=== PATIENT | male | born 1975 | race Caucasian/White ===

== ENCOUNTER 2022-12-14 09:26 | Emergency (ER) | payer OTHER, SELFPAY ==
--- NOTE | 2022-12-14 09:41 | ED.URI ---
HPI - URI/Sore Throat General Chief Complaint: Upper Respiratory Infection Stated Complaint: sorethroat Time Seen by Provider: 12/14/22 09:58 Source: patient and RN notes reviewed Mode of arrival: ambulatory Limitations: no limitations History of Present Illness HPI Narrative: 47-year-old male presents with concern for sore throat that started yesterday. Reports he was exposed to strep throat co-worker. He denies nasal congestion, rhinorrhea, cough, fever, body aches, chills, sweats. He reports headache. He has not taken any medication for his symptoms. MD elicited complaint: sore throat Related Data Home Medications Medication Instructions Recorded Confirmed No Home Medications 12/14/22 12/14/22 Allergies Allergy/AdvReac Type Severity Reaction Status Date / Time No Known Allergies Allergy Verified 12/14/22 10:12 Review of Systems Review of Systems: CONSTITUTIONAL: Denies malaise, chills, sweats, or fever. EYES: Denies visual changes, redness, or discharge. ENT: Denies rhinorrhea, congestion, sinus pain, otalgia. Reports sore throat. CARDIOVASCULAR: Denies chest pain, palpitations, or edema. RESPIRATORY: Denies cough. Denies dyspnea. GASTROINTESTINAL: Denies abdominal pain, nausea, vomiting, diarrhea SKIN: Denies rash or itching. MUSCULOSKELETAL: Denies myalgia. NEUROLOGIC: Reports headache. All systems reviewed & are unremarkable except as noted in HPI and below PMFSH Comments At time of signature, agree with nursing past medical, surgical, social and family history. There is no relevant family history pertinent to the presenting complaint Exam Narrative: GENERAL: Well-appearing, well-nourished, and in no acute distress. HEAD: Normocephalic EYES: PERRLA, conjunctivae clear ENT: Nares clear. Mucous membranes moist. TM pearly chow with sharp light reflex bilaterally; no tragal tenderness. Oropharynx not erythematous without lesions. Tonsils not enlarged and without exudate, no drooling, no hoarseness, no trismus, uvula midline. NECK: Supple. No lymphadenopathy CHEST: Clear to auscultation, breath sounds equal. No wheezing, rhonchi, rales, or stridor. No respiratory distress, speaks in full sentences. HEART: Regular rate and rhythm. No murmur heard. SKIN: Warm, dry, no rash. NEURO: Alert and oriented x3. PSYCH: Normal mood and affect Course Course Emergency Course: Patient is aware of diagnosis, understands and agrees to treatment plan. Anticipatory guidance given. Patient agrees to follow-up as directed and is aware of reasons to seek care at the emergency department. Portions of this record may have been created with voice recognition software Level of Care: Express Care Visit Vital Signs Vital signs: Reviewed. MDM - URI/Sore Throat MDM Narrative Medical decision making narrative: Differential diagnosis considered: Cazares virus, strep pharyngitis, allergic rhinitis, upper respiratory tract infection, sinusitis, rhinosinusitis, nasopharyngitis. viral pharyngitis, otitis media, otitis externa, pneumonia, bronchitis, viral cough syndrome, viral syndrome, and influenza. Exam findings show no acute concerns or changes; patient is non-toxic appearing and is in no distress. Patient is appropriate for outpatient treatment and follow-up. Lab Data Attestation: I reviewed the patient's lab results. Critical Care Time Critical Care Time Critical Care Time: No Discharge Plan Discharge Clinical Impression: Pharyngitis Patient Disposition: Home, Self-Care Condition: Stable Instructions: Pharyngitis (ED) Additional Instructions: Your rapid strep swab was negative today at [facility]. A throat culture will be sent to the laboratory for further testing. If the test is positive, you will receive a phone call within 48 hours and an appropriate antibiotic will be initiated at that time. Your symptoms are likely due to a viral illness, which is not treated with antibiotics. Viral sy
[2022-12-14 09:53] VITALS: BP 134/74; PULSE 65; RESP 18; TEMP 36.7; O2SAT 98
== END 2022-12-14 10:24 | disposition home or self-care (01) ==
PROVIDERS: Emergency Provider Nurse Practitioner
DX: J02.9 Acute pharyngitis, unspecified (principal)
CPT/HCPCS: 87880; 99213; G0463

== ENCOUNTER 2024-05-14 09:29 | Emergency (ER) | payer OTHER, SELFPAY ==
--- NOTE | 2024-05-14 09:32 | ED_ITS ---
HPI - URI/Sore Throat General Chief Complaint: Upper Respiratory Infection Stated Complaint: Flu Like / sinus congestion Time Seen by Provider: 05/14/24 09:32 Source: patient Mode of arrival: ambulatory Limitations: no limitations History of Present Illness HPI Narrative: Phil is a 48-year-old male patient presenting to the clinic today with complaints of flu-like symptoms/sinus congestion, left ear pain. Reports his symptoms started approximately 4 5 days ago. He has a 101 degree fever in the clinic today. States that he developed a lot of sinus congestion and ear pain yesterday however he has had runny nose, cough, congestion, and fever for the past 4-5 days. Denies any chest pain or shortness of breath. Related Data Home Medications ?Medication ?Instructions ?Recorded ?Confirmed ?Last Taken ?Type No Home Medications 05/14/24 05/14/24 Unknown History Allergies Allergy/AdvReac Type Severity Reaction Status Date / Time No Known Allergies Allergy Verified 05/14/24 09:46 Review of Systems Review of Systems: Pertinent positives per HPI. Patient denies any rash, headache, visual changes, dizziness, shortness of breath, chest pain, palpitations, nausea, vomiting, diarrhea, constipation, abdominal pain, or any urinary issues. PMFSH Comments At the time of my signature, I reviewed and agree with the nursing past medical, surgical, social, and family history. There is no relevant family history pertinent to the patient complaint. Exam Narrative: General: Well-developed, well nourished, in no apparent distress Head: Normocephalic, atraumatic Eyes: Pupils equally round and reactive to light bilaterally, EOM intact, sclera and conjunctive clear, no discharge, lids normal Ears: TMs intact and congested, ear canals clear, no drainage, grossly hearing normal. Nose: Nares patent, clear nasal discharge, no inflammation, no sinus tenderness. Mouth: Oral pharynx without lesions or masses, good dentition, MMM. Neck: Supple, trachea midline, no enlargement of anterior or posterior cervical nodes, no thyroid masses or goiter palpable. Cardio: Regular rate and rhythm, s1 and s2 normal, no murmur appreciated. Resp: Clear to auscultation bilaterally, no rhonchi, rales, wheezing or rubs Course Course Emergency Course: Portions of this record may have been created with voice recognition software. Level of Care: Express Care Visit Vital Signs Vital signs: Vital Signs Temperature 38.6 C H 05/14/24 09:41 Pulse Rate 92 05/14/24 09:41 Respiratory Rate 18 05/14/24 09:41 Blood Pressure 152/88 H 05/14/24 09:41 Pulse Oximetry 98 05/14/24 09:41 Oxygen Delivery Room Air 05/14/24 09:41 Temperature 38.6 C H 05/14/24 09:41 Pulse Rate 92 05/14/24 09:41 Respiratory Rate 18 05/14/24 09:41 Blood Pressure 152/88 H 05/14/24 09:41 Pulse Oximetry 98 05/14/24 09:41 Oxygen Delivery Room Air 05/14/24 09:41 Vital signs reviewed MDM - URI/Sore Throat MDM Narrative Medical decision making narrative: At the time of visit patient is resting comfortably on the exam table. Patient appears to be nontoxic. Labs: Influenza and COVID testing was performed. Influenza testing was positive for influenza B. COVID testing was negative. Plan: Patient has influenza B. Supportive measures were discussed with the patient and they voiced understanding discharge instructions and agrees to treatment plan. Return precautions reviewed Differential Diagnosis Differential diagnosis: Likely upper respiratory infection, otitis media, sinusitis, viral infection, bronchitis, influenza, pharyngitis and other (COVID) Lab Data Labs: Lab Results 05/14/24 Range/Units 09:55 POC Influenza A Ag Negative (Negative) POC Influenza B Ag Positive (Negative) POC SARS CoV-2 Ag Negative (Negative) Discharge Plan Discharge Clinical Impression: Influenza B Patient Disposition: Home, Self-Care Condition: Stable Instructions: Antibiotic Form, Influenza (ED) Additional Instructions: Influenza B testing was positive in the clinic today. COVID testing was negati ve. May take DayQuil/NyQuil for cold/flu symptoms May take Mucinex as needed for cough and congestion Increase fluids and stay well hydrated Tylenol/motrin for pain/fever Flonase and OTC antihistamines as directed Vicks vapor rub to open sinuses Sinus rinses for congestion Cepacol spray, cough drops, throat lozenges, warm tea with honey/lemon, gargle salt water to soothe throat BRAT diet for diarrhea Clear liquids x 24 hours then advance as tolerated for nausea/vomiting Go to the ED if you develop a worsening in your condition- high fever not controlled by Tylenol or Motrin, dehydration, weakness, lethargy, shortness of breath, or chest pain. Follow up with your PCP in 3-5 days if symptoms persist. Patient Language: Ukrainian Prescriptions: No Action No Home Medications Follow-up/Referrals: PHYSICIAN,SPECIAL INVESTIGATOR [Primary Care Provider] - Stand Alone Forms: Work/School Release IP Time of Disposition: 09:47 Quality NIHSS Nursing Documentation ED NIHSS nursing documentation: reviewed/agree
[2024-05-14 09:41] VITALS: BP 152/88; PULSE 92; RESP 18; TEMP 38.6; O2SAT 98
[2024-05-14 09:57] LABS: EDCOVIDSCREEN Negative (Negative); EDINFLUASCREEN Negative (Negative); EDINFLUBSCREEN Positive (Negative)
--- OUTSIDE RECORDS SUMMARY | 2024-05-14 10:20 | XMS_ITS | Clinical Summary ---
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 Gender Identity Not on file Sexual Orientation Not on file Plan of Treatment Health Maintenance Due Date Last Done Comments Hepatitis C Virus (HCV) Screening 1974 TdaP Immunization 1974 Hepatitis B Immunization (1 of 3 - 19+ 3-dose series) 1993 Colonoscopy 07/09/2019 Colorectal Cancer Screening 07/09/2019 Influenza Immunization (#1) 2023 SARS-COV-2 Immunization ( season) 2023 Respiratory Syncytial Virus (RSV) Immunization (Adult) (1 - 1-dose 75+ series) 2049 Meningococcal Immunization (ACWY) Aged Out No longer eligible based on patient's age to complete this topic Pneumococcal Immunization Combined Aged Out No longer eligible based on patient's age to complete this topic Rotavirus Immunization Aged Out No lo nger eligible based on patient's age to complete this topic
--- OUTSIDE RECORDS SUMMARY | 2024-05-14 10:20 | XMS_ITS | Clinical Summary ---
Author Organization [facility] Address [address] [place] [address] Care Team Providers Care Neurourologist Name Role Phone Unavailable Primary Care Provider Unavailabl e Source Comments [facility],non-owned Affiliates and Associated Physician Practices is amultiple site organization consisting of ambulatory clinics and hospital sitesin [place], [place], [place]. This disclosure is being madepursuant to the Care Everywhere program and may not contain all information available regarding this patient. Last updated [address] Allergies No known active allergies Medications Be aware that medications may not be up to date on this document. Always verify current medications with the patient. No known medications Social History Tobacco Use Types Packs/Day Years Used Date Smoking Tobacco: Never Sex and Gender Information Value Date Recorded Sex Assigned at Not on file Gender Identity Not on file Sexual Orientation Not on file Last Filed Vital Signs Vital Sign Reading Time Taken Comments Blood Pressure 114/80 08/06/2016 10:23 AM CDT Pulse 73 08/06/2016 10:23 AM CDT Temperature 37 C (98.6 F) 08/06/2016 10:23 AM CDT Respiratory Rate 12 08/06/2016 10:23 AM CDT Oxygen Saturation 96% 08/06/2016 10:23 AM CDT Inhaled Oxygen Concentration - - Weight 83.9 kg (185 lb) 08/06/2016 10:23 AM CDT Height 175.3 cm (5' 9 ) 08/06/2016 10:23 AM CDT Body Mass Index 27.32 08/06/2016 10:23 AM CDT Plan of Treatment Health Maintenance Due Date Last Done Comments COLOGUARD (AGES 45-75) - COLON CA SCREENING 1974 COLON MONITORING 1974 COLONOSCOPY - COLON CA SCREENING 1974 CT COLONOGRAPHY - COLON CA SCREENING 1974 Colorectal Cancer Screening 1974 FIT - COLON CA SCREENING 1974 FLEX SIG - COLON CA SCREENING 1974 LIPID TESTING 1974 HIV SCREENING 1989 HEPATITIS C SCREENING 07/03/1992 DTAP/TDAP/TD VACCINES (1 - Tdap) 1993 HEPATITIS B VACCINE (1 of 3 - 19+ 3-dose series) 1993 COVID-19 VACCINE (1 - 2023-25 season) 2023 INFLUENZA VACCINE (#1) 2023 6, 12/25/2014, 12/12/2013, Additional history exists DEPRESSION SCREENING 02/28/2024 ZOSTER VACCINE (1 of 2) 2024 HIB VACCINE Aged Out No longer eligi ble based on patient's age to complete this topic HPV VACCINE Aged Out No longer eligi ble based on patient's age to complete this topic MENINGOCOCCAL (Group B) VACCINE SHARED DECISION-MAKING Aged Out No longer eligible based on patient's age to complete this topic MENINGOCOCCAL GROUPS A/C/Y/W VACCINE Aged Out No longer eligible based on patient's age to complete this topic PNEUMOCOCCAL VACCINE Aged Out No long er eligible based on patient's age to complete this topic
--- OUTSIDE RECORDS SUMMARY | 2024-05-14 10:20 | XMS_ITS | Continuity of Care Document ---
Author Name [facility] Organization [facility] Care Team Providers Care Freelance Court Reporter Name Role Phone [facility] Unavailable Unavailable Medications Combined list of outpatient medications from Department of Defense and Veterans Affairs facilities.Medications provided include 1) outpatient medications from the last 15 months, and 2) patient-reported medications. Medication Details Route Status Patient Instructions Prescription Expires Prescription Number Last Dispense Date Ordering Provider Order Date Order Qty Source loratadine 10 mg oral tablet TAKE 1 TABLET BY MOUTH DAILY OR EVERY OTHER DAY NEEDED FOR HIVES, # 90 EA, 1 total refill(s ), Acute Complet ed 09/12/2022 2 2022 90.0 Ambulat ory Pharmac y loratadine 10 mg oral tablet loratadi ne 10 mg oral tablet Start Date: 04/12/21 Status: Ordered Repeat number: 1 Ordered 2021 No Facilit y Access naproxen 500 mg oral tablet 1 tab(s), Oral, BID, PRN pain (mild), # 60 tab(s), 0 total refill(s ), Acute, 09/24/23 12:00:00 AM CDT, Pharmacy : [facility] Oral (given by mouth) Complet ed 09/24/2023 3 2023 60.0 0055C-[address] [place] [address] topical cream topical cream Start Date: 04/12/21 Status: Ordered Repeat number: 1 Ordered 2021 No Facilit y Access triamcinolo ne 0.1% topical ointment triamcin olone 0.1% topical ointment Start Date: 04/12/21 Status: Ordered Repeat number: 1 Ordered 2021 No Facilit y Access Immunizations Combined list of available immunizations from the Department of Defense and Veterans Affairs facilities. Immunization Series Date Given Administered By Site Reaction Lot Number CVX Code Drug Orthodontic Technician Assistant Status Comments Source tetanus-dipht h toxoids (Td) adult/adol 2021 [id number] 09 sanofi pasteur complet ed tetanus-d [facility] toxoids (Td) adult/ado l 05/29/21 Given Ambulat ory Pharmac y COVID Vaccine Moderna 2021 [id number] 207 complet ed COVID Vaccine Moderna 03/22/21 Given Ambulat ory Pharmac y influenza, injectable, quadrivalent- pf 2020 [id number] 150 GlaxoSmithKli ne complet ed influenza , injectabl e, quadrival ent-pf 02/04/21 Given Ambulat ory Pharmac y COVID Vaccine Moderna 2020 zzRig ht Arm [id number] 207 complet ed COVID Vaccine Moderna 05/07/20 Given Ambulat ory Pharmac y COVID Vaccine Moderna 2020 zzLef t Arm [id number] 207 complet ed COVID Vaccine Moderna 04/09/20 Given Ambulat ory Pharmac y influenza, injectable, quadrivalent- pf 2019 [id number] 150 Seqirus complet ed influenza , injectabl e, quadrival ent-pf 02/01/20 Given Ambulat ory Pharmac y influenza, injectable, quadrivalent- pf 2018 [id number] 150 Seqirus complet ed influenza , injectabl e, quadrival ent-pf 12/30/18 Given Ambulat ory Pharmac y influenza, injectable, quadrivalent 2017 [id number] 158 GlaxoSmithKli ne complet ed influenza , injectabl e, quadrival ent 12/31/17 Given Ambulat ory Pharmac y typhoid Vi capsular polysaccharid e vac 2017 [id number] 101 sanofi pasteur complet ed typhoid Vi capsular polysacch aride vac 07/01/17 Given Ambulat ory Pharmac y influenza, injectable, quadrivalent- pf 2016 [id number] 150 GlaxoSmithKli ne complet ed influenza , injectabl e, quadrival ent-pf 02/24/17 Given Ambulat ory Pharmac y measles/mumps /rubella virus vaccine 2016 [id number] Merck & Company Inc complet ed measles/m umps/rube lla virus vaccine 09/13/16 Given Ambulat ory Pharmac y measles/mumps /rubella virus vaccine 2016 [id number] Merck & Company Inc complet ed measles/m umps/rube lla virus vaccine 08/16/16 Given Ambulat ory Pharmac y anthrax vaccine 2015 [id number] 24 Emergent [employer]olutions complet ed anthrax vaccine 12/08/15 Given Ambulat ory Pharmac y influenza, injectable, quadrivalent 2015 [id number] 158 ID Biomedical comple t ed influenza , injectabl e, quadrival ent 11/26/15 Given Ambulat ory Pharmac y anthrax vaccine 2015 [id number] 24 [employer] complet ed anthrax vaccine 05/30/15 Given Ambulat ory Pharmac y typhoid Vi capsular polysaccharid e vac 2014 [id number] 101 sanofi pasteur complet ed typhoid Vi capsular polysacch aride vac 12/25/14 Given Ambulat ory Pharmac y influenza, injectable, quadrivalent- pf 2014 [id number] 150 GlaxoSmithKli ne complet ed influenza , injectabl e, quadrival ent-pf 12/25/14 Given Ambulat ory Pharmac y influenza, seasonal, injectable-pf 2013 [id number] 140 Novartis Pharmaceutica ls complet ed influenza , seasonal, injectabl e-pf 12/12/13 Given Ambulat ory Pharmac y influenza, live, intranasal,qu adrivalent 2012 [id number] 149 Spectra [employer] Inc comple t ed influenza , live, intranasa l,quadriv alent 11/21/12 Given Ambulat ory Pharmac y anthrax vaccine 2012 [id number] 24 [employer] complet ed anthrax vaccine 07/13/12 Given Ambulat ory Pharmac y typhoid Vi capsular polysaccharid e vac 2012 [id number] 101 sanofi pasteur complet ed typhoid Vi capsular polysacch aride vac 04/29/12 Given Ambulat ory Pharmac y influenza, seasonal, injectable-pf 2011 [id number] 140 sanofi pasteur complet ed influenza , seasonal, injectabl e-pf 12/15/11 Given Ambulat ory Pharmac y anthrax vaccine 2011 [id number] 24 [employer] complet ed anthrax vaccine 03/30/11 Given Ambulat ory Pharmac y tetanus, diphtheria, acellular pertu is 2011 [id number] 115 GlaxoSmithKli ne complet ed tetanus, diphtheri a, acellular pertussis 03/23/11 Given Ambulat ory Pharmac y influenza, seasonal, injectable-pf 2011 [id number] 140 sanofi pasteur complet ed influenza , seasonal, injectabl e-pf 03/02/11 Given Ambulat ory Pharmac y anthrax vaccine 2011 [id number] 24 Emer[employer] complet ed anthrax vaccine 03/02/11 Given Ambulat ory Pharmac y meningococcal A,C,Y,W-135 (MCV4P) 2011 [id number] 114 sanofi pasteur complet ed meningoco ccal A,C,Y,W-1 35 (MCV4P) 03/02/11 Given Ambulat ory Pharmac y influenza virus vaccine,split 2010 [id number] 15 sanofi pasteur complet ed influenza virus vaccine,s plit 03/17/10 Given Ambulat ory Pharmac y typhoid Vi capsular polysaccharid e vac 2010 C8846-2 101 sanofi pasteur complet ed typhoid Vi capsular polysacch aride vac 03/17/10 Given Ambulat ory Pharmac y Novel influenza-H1N 1-09, injectable 2009 [id number] 127 Novartis Pharmaceutica ls complet ed Novel influenza -[id number], injectabl e 06/07/09 Given Ambulat ory Pharmac y influenza virus vaccine, live 2008 [id number] 111 Medimmune Inc comple t ed influenza virus vaccine, live 01/04/09 Given Ambulat ory Pharmac y hepatitis B adult vaccine 2008 [id number] [id number] 43 GlaxoSmithKli ne complet ed hepatitis B adult vaccine 08/24/08 Given Ambulat ory Pharmac y hepatitis B adult vaccine 2007 [id number] 43 GlaxoSmithKli ne complet ed hepatitis B adult vaccine 02/02/08 Given Ambulat ory Pharmac y influenza virus vaccine, live 2007 [id number] 111 Medimmune Inc comple t ed influenza virus vaccine, live 11/25/07 Given Ambulat ory Pharmac y typhoid Vi capsular polysaccharid e vac 2007 [id number] 101 sanofi pasteur complet ed typhoid Vi capsular polysacch aride vac 11/04/07 Given Ambulat ory Pharmac y hepatitis B adult vaccine 2007 [id number] [id number] 43 GlaxoSmithKli ne complet ed hepatitis B adult vaccine 11/04/07 Given Ambulat ory Pharmac y influenza virus vaccine, live 2006 [id number] 111 [employer] Inc comple t ed influenza virus vaccine, live 12/29/06 Given Ambulat ory Pharmac y tuberculin purified protein derivative 2006 [id number] 96 sanofi pasteur complet ed tuberculi n purified protein derivativ e 03/08/06 Given Ambulat ory Pharmac y tetanus-dipht h toxoids (Td) adult/adol 2006 [id number] 09 sanofi pasteur complet ed tetanus-d iphth toxoids (Td) adult/ado l 03/05/06 Given Ambulat ory Pharmac y tuberculin purified protein derivative 2006 [id number] 96 sanofi pasteur complet ed tuberculi n purified protein derivativ e 03/05/06 Given Ambulat ory Pharmac y hepatitis A adult vaccine 2006 [id number] 52 GlaxoSmithKli ne complet ed hepatitis A adult vaccine 03/05/06 Given Ambulat ory Pharmac y influenza virus vaccine,split 2006 [id number] 15 sanofi pasteur complet ed influenza virus vaccine,s plit 03/05/06 Given Ambulat ory Pharmac y vaccinia (smallpox) vaccine 2005 [id number] 75 beModel complet ed vaccinia (smallpox ) vaccine 12/29/05 Given Ambulat ory Pharmac y tuberculin purified protein derivative 2005 [id number] 96 sanofi pasteur complet ed tuberculi n purified protein derivativ e 11/12/05 Given Ambulat ory Pharmac y yellow fever vaccine 2005 [id number] 37 sanofi pasteur complet ed yellow fever vaccine 11/12/05 Given Ambulat ory Pharmac y meningococcal polysaccharid e (MPSV4) 2005 [id number] 32 sanofi pasteur complet ed meningoco ccal polysacch aride (MPSV4) 08/07/05 Given Ambulat ory Pharmac y hepatitis A adult vaccine 2005 [id number] 52 GlaxoSmithKli ne complet ed hepatitis A adult vaccine 08/07/05 Given Ambulat ory Pharmac y typhoid vaccine, parenteral 2005 X6916-0 41 sanofi pasteur [facility] ed typhoid vaccine, parentera l 08/07/05 Given Ambulat ory Pharmac y influenza virus vaccine,split 2004 [id number] 15 sanofi pasteur [facility] ed influenza virus vaccine,s plit 01/26/05 Given Ambulat ory Pharmac y poliovirus vaccine, inactivated 1993 10 complet ed polioviru s vaccine, inactivat ed 01/11/94 Given Ambulat ory Pharmac y Vital Signs Combined list of inpatient and outpatient Vital Signs from Department of Defense and Veterans Affairs, ranging from 12 months to all on record, depending upon the facility. Vital Sign Value Date Comments Source Systolic Blood Pressure 122 mm[Hg] 12/06/2022 13:19:00 [facility] Diastolic Blood Pressure 73 mm[Hg] 12/06/2022 13:19:00 [facility] Respiratory Rate 16 br/min 12/06/2022 13:19:00 [facility] Temperature Oral 36.6 [place] 12/06/2022 13:19:00 [facility] BP Site Left arm 12/06/2022 13:19:00 [facility] Peripheral Pulse Rate 75 bpm 12/06/2022 13:19:00 [facility] Mean Arterial Pressure, Calc 89 mm[Hg] 12/06/2022 13:19:00 [facility] Blood Pressure Manual Automatic 12/06/2022 13:19:00 [facility] Peripheral Pulse Rate 80 bpm 09/23/2022 15:39:00 [facility] Mean Arterial Pressure, Calc 98 mm[Hg] 09/23/2022 15:39:00 [facility] Temperature Oral 36.9 [place] 09/23/2022 15:39:00 [facility] Systolic Blood Pressure 138 mm[Hg] 09/23/2022 15:39:00 [facility] Diastolic Blood Pressure 78 mm[Hg] 09/23/2022 15:39:00 [facility] Respiratory Rate 16 br/min 09/23/2022 15:39:00 [facility] Procedures Combined list of: 1) Procedures from Department of Veterans Affairs facilities going back up to thelast 18 months, not all VA non-surgical procedures are included; 2) All procedures from the Department of Defense facilities. Procedure Procedure Type Code Date Perfomer Comments Sourc e No data available for this section Ambulatory P harmacy Social History Combined list of available smoking, tobacco, and other social history from Department of Defense and Veterans Affairs facilities. Social History Type Response Date Comment Sourc e Sex Representation Male 06/04/2021 Unknow n Organization Tobacco Never-cigarette user Cigarette use:. Never-other tobacco user (not cigarettes) Other Tobacco use:. Ambulatory Pharmacy Sexual Orientation Ambula tory Pharmacy Gender identity Ambulator y Pharmacy Assessment and Plan Combined list of future care activities from Department of Defense and Veterans Affairs facilities (e.g., assessment and plan notes, appointments, orders, and referrals). Additional future care activities may be listed in the Plan of Care section. Result Assessment and Plan Date Source Assessment and Plan Extracted from:Title : 0055 [facility] left shoulder pain Author: RAMON CELESTE WATERPROOFING MACHINE OPERATOR Date: 02/03/23 1. L eft shoulder pain Ordered: Referral Request 2.0 Extracted from:Title: 0055 [facility] Virtual-L shoulder XR f/u Author: CAPO SMITH PA Date: 12/09/22 1. S [place] pain [age] y/o m lance here for virtual appointment for X-ray f/u on L shoulder. Verified name and . Discussed the following: Pts L shoulder XR shows signs of moderate AC arthrosis. Pt states L shoulder p ain is now a t 0/10 unless i n certain positions ( abduction and internal rotation-like putting on a shirt) t hen at 4 or 5 out of 10. Pt states he is done with p hysical therapy but c ontinues stretches and s trengthening through a n an his Pt is updating weekly. P t is still awaiting his M RI. -Recommending continuing strength and stretching -NSAIDS as needed -Rest and ice ( kym o n d ays with more movement) -Pt will make appointment when MRI is completed -F/u as n eeded Extracted from:Title: 0055 [facility] Left Shoulder pain Author: CAPO SMITH PA Date: 12/06/22 1. S [place] pain 47 y /o m lance p resents with 4 m os p ersistent shoulder p ain o n left side. Severity is 6 o ut of 10 at its worse. Pain d oes not radiate. Better with rest, ice/heat; worse with abduction/external rotation movements. Pt reports no swelling, instability, locking, i nfection, or systemic joint process. Pt has already been to physical therapy for 6-8 weeks and only experienced slight improvement. Pt reports no weakness, numbness/tingling of UE, no loss of ROM. -Discussed continued R ICE treatment -Encouraged continued motion of shoulder -Naproxen prn for pain - W ill continue Physical therapy f or last appointment -X-rays ordered/MRI ordered -F/u v irtually in a few days for x-ray results o r sooner if symptoms worsen -Consider Referral to Ortho for further eval Ordered: Referral Request 2.0 Orders: XR Shoulder 4+ Views Left Extracted from:Title: 0055 [facility] Shoulder pain Author: RAMON CELESTE WATERPROOFING MACHINE OPERATOR Date: 09/23/[address] [facility] pain Physical exam reassuring. Pain mostly with open can test (Supraspinatus). Full range of motion with some discomfort. We discussed most likely diagnosis is rotator cuff tendinosis. At this time we will treat conservatively with Naprosyn and send the patient to physical therapy.? He will follow-up with his primary care provider after being seen by physical therapy. At that time if he continues to have discomfort we will send him for advanced imaging.Verbalizes understanding of instructions. Ordered: naproxen(naproxen 500 mg oral tablet), 1 tab(s), Oral, BID, PRN pain (mild), # 60 tab(s), 0 total refill(s), Acute, 09/24/2023, 1 tab(s) Oral BID,PRN:pain (mild), Pharmacy: [facility] [Not filled] Referral Request 2.0 2. H istory of malignant neoplasm of skin History of basal cell carcinoma in 2010 with Mohs surgery. Requires annual referral to dermatology for surveillance. Referral placed. Ordered: Referral Request 2.0 05/14/2024 [facility] Functional Status Combined list of recent functional and cognitive assessments recorded at Department of Defense and Veterans Affairs (VA).VA Functional [place] Measurement (FIM) Scale: 1 = Total Assistance (Subject = 0% +), 2 = Maximal Assistance (Subject = 25% +), 3 = Moderate Assistance (Subject = 50% +), 4 = Minimal Assistance (Subject = 75% +), 5 = Supervision, 6 = Modified [place] (Device), 7 = Complete [place] (Timely, Safely). Assessment Date/Time Source Assessment Type Assessment Skill Assessment Score Assessment Details No data available for this section
--- OUTSIDE RECORDS SUMMARY | 2024-05-14 10:20 | XMS_ITS | Referral Summary ---
Author Organization [facility] Address [address] [place] [address] Care Team Providers Care Imaging Analyst Name Role Phone Kevyn Coughlin NP Primary Care Provider [phone] Allergies No known active allergies Medications oxyCODONE (ROXICODONE) 5 mg immediate release tabletIndicatio ns:Pain Take 1 tablet (5 mg total) by mouth every 6 (six) hours as needed for pain 20 tablet 4 Active ketorolac (TORADOL) 10 mg tablet Take 1 tablet (10 mg total) by mouth every 6 (six) hours as needed for pain 12 tablet 4 Active senna-docusate (PERICOLACE) 8.6-50 mg Take 1 tablet by mouth 2 (two) times a day as needed for constipation 30 tablet 4 Active Active Problems Problem Noted Date Diagnosed Date Tear of left glenoid labrum 05/16/2023 Left shoulder pain 05/16/2023 Social History Tobacco Use Types Packs/Day Years Used Date Smoking Tobacco: Never Smokeless Tobacco: Never Tobacco Cessation:Counseling Given: Not Answered AUDIT-C Answer Date Recorded Q1: How often do you have a drink containing alc ohol? Monthly or less 05/18/2023 Q2: How many drinks containi ng alcohol do you have on a typical day when you are drinking? 1 or 2 05/18/2023 Q3: How often do you have si x or more drinks on one occasion? Never 05/18/2023 Personal Safety Answer Date Recorded Have you ever been in or are you currently in a harmful physical or emotional relationship or is someone making you feel afraid or unsafe? 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 Gender Identity Not on file Sexual Orientation Not on file Last Filed Vital Signs Vital Sign Reading Time Taken Comments Blood Pressure 141/97 06/01/2023 11:00 AM CDT Pulse 80 06/01/2023 11:05 AM CDT Temperature 36.8 C (98.2 F) 06/01/2023 9:50 AM CDT Respiratory Rate 23 06/01/2023 11:05 AM CDT Oxygen Saturation 93% 06/01/2023 11:05 AM CDT Inhaled Oxygen Concentration - - Weight 90.9 kg (200 lb 6.4 oz) 06/01/2023 6:22 A M CDT Height 177.8 cm (5' 10 ) 06/01/2023 6:22 AM CDT Body Mass Index 28.75 06/01/2023 6:22 AM CDT Plan of Treatment Not on file Medical Devices Implanted Type Area Hydraulic Dredge Operator Device Identifier Shelf Expiration Date Model / Serial / Lot Arthrex Inc Suture [place] Double Loaded Self Drilling Fibertak 1.3mm Ar-3602-2 - [id number] Implanted:Qty: 1 on 06/01/2023 by Dina Mcginnis MD at [facility] [place] Left: Shoulder Arthrex Inc 01/27/2028 AR-3602-2 / / [id number] Description:[employer]X [employer] Sutu re [place] Double Loaded Self Drilling Fibertak 1.3mm AR-3602-2 - [id number] Ar[employer]rex Inc Suture [place] Self Drilling Fibertak 1.3mm Ar-3602 - [id number] Implanted:Qty: 1 on 06/01/2023 by Dina Mcginnis MD at [facility] [place] Left: Shoulder Arthrex Inc 12/28/2027 AR-3602 / / [id number] Description:[employer]RE[employer] INC Sutu re [place] Self Drilling Fibertak 1.3mm AR-3602 - [id number] [employer] Inc [place] Suture Knotless Self Bunching Shoulder Fibertak Gen2 Ar-3636 - [id number] Implanted:Qty: 1 on 06/01/2023 by Dina Mcginnis MD at [facility] Left: Shoulder Arthrex Inc 03/29/2028 AR-3636 / / [id number] Description:ARTHREX INC Anch or Suture Knotless Self Bunching Shoulder Fibertak Gen2 AR-3636 - [id number] [employer] Inc [place] Suture Knotless Self Bunching Shoulder Fibertak Gen2 Ar-3636 - [id number] Implanted:Qty: 1 on 06/01/2023 by iDna Mcginnis MD at [facility] Left: Shoulder Ar[employer]rex Inc 03/29/2028 AR-3636 / / [id number] Description:AR[employer] INC Anch or Suture Knotless Self Bunching Shoulder Fibertak Gen2 AR-3636 - [id number] [employer] Inc [place] Suture Knotless Self Bunching Shoulder Fibertak Gen2 Ar-3636 - [id number] Implanted:Qty: 1 on 06/01/2023 by Dina Mcginins MD at [facility] Left: Shoulder Arthrex Inc 03/29/2028 AR-3636 / / [id number] Description:[employer] Anch or Suture Knotless Self Bunching Shoulder Fibertak Gen2 AR-3636 - [id number] Insurance CLAIMS CLAIMS Care Teams Imaging Analyst Relationship Specialty Start Date End Date Kevyn Coughlin NP PCP - General Nurse Practitioner 02/14/23
--- OUTSIDE RECORDS SUMMARY | 2024-05-14 10:20 | XMS_ITS | Clinical Summary ---
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 Gender Identity Not on file Sexual Orientation Not on file Obstetrics History Last Filed Vital Signs Vital Sign Reading [...] 06/01/2023 6:22 AM CDT Plan of Treatment Health Maintenance Due Date Last Done Comments Colon Cancer Screening-Colonoscopy 1974 Depression Screening 1974 Hepatitis C Screening 1974 Regular Well Visit/Exam 18-64 1992 Covid-19 Vaccine ( season) 2023 03/22/2021, 05/07/2020, 04/09/2020 Influenza Vaccine (#1) 2023 , 02/01/2020, 12/30/2018, Additional history exists DTaP/Tdap/Td Vaccine (3 - Td or Tdap) 05/30/2031 05/29/2021, 03/23/2011, 03/05/2006 Hepatitis B Screening Completed 08/24/2008 , 02/02/2008, 11/04/2007 Pneumococcal vaccine <65 Aged Out No longer eligible based on patient's age to complete this topic Medical Devices Implanted Type Area Financial Compliance Officer Device Identifier Shelf Expiration Date Model / Serial / Lot [employer] Inc Suture [place] Double Loaded Self Drilling Fibertak 1.3mm Ar-3602-2 - [id number] Implanted:Qty: 1 on 06/01/2023 by Dina Mcginnis MD at [facility] [place] Left: Shoulder Ar[employer] Inc 01/27/2028 AR-3602-2 / / [id number] Description:[employer] Sutu re [place] Double Loaded Self Drilling Fibertak 1.3mm AR-3602-2 - [id number] Ar[employer] Inc Suture [place] Self Drilling Fibertak 1.3mm Ar-3602 - [id number] Implanted:Qty: 1 on 06/01/2023 by Dina Mcginnis MD at [facility] Left: Shoulder Ar[employer] Inc 12/28/2027 AR-3602 / / [id number] Description:AR[employer] Sutu re [place] Self Drilling Fibertak 1.3mm AR-3602 - [id number] Arthrex Inc [place] Suture Knotless Self Bunching Shoulder Fibertak Gen2 Ar-3636 - [id number] Implanted:Qty: 1 on 06/01/2023 by Dina Mcginnis MD at [facility] Left: Shoulder Ar[employer] Inc 03/29/2028 AR-3636 / / [id number] Description:AR[employer] INC Anch or Suture Knotless Self Bunching Shoulder Fibertak Gen2 AR-3636 - [id number] Ar[employer] Inc [place] Suture Knotless Self Bunching Shoulder Fibertak Gen2 Ar-3636 - [id number] Implanted:Qty: 1 on 06/01/2023 by Dina Mcginnis MD at [facility] [place] Left: Shoulder [employer] Inc 03/29/2028 AR-3636 / / [id number] Description:[employer] Anch or Suture Knotless Self Bunching Shoulder Fibertak Gen2 AR-3636 - [id number] Ar[employer] Inc [place] Suture Knotless Self Bunching Shoulder Fibertak Gen2 Ar-3636 - [id number] Implanted:Qty: 1 on 06/01/2023 by Dina Mcginnis MD at [facility] Left: Shoulder Ar[employer] Inc 03/29/2028 AR-3636 / / [id number] Description:[employer] Anch or Suture Knotless Self Bunching Shoulder Fibertak Gen2 AR-3636 - [id number] Insurance CLAIMS CLAIMS Care Teams Planning Lead Relationship Specialty Start Date End Date Kevyn Coughlin NP PCP - General Nurse Practitioner 02/14/23
== END 2024-05-14 09:57 | disposition home or self-care (01) ==
PROVIDERS: Emergency Provider Nurse Practitioner Family
DX: J10.1 Influenza due to other identified influenza virus with other respiratory manifestations (principal); Z20.822 Contact with and (suspected) exposure to COVID-19
CPT/HCPCS: 87426; 87804; 99212; G0463